=== PATIENT | female | born 1995 | race Caucasian/White ===

== ENCOUNTER 2016-12-30 09:53 | Outpatient (CLI) | payer BC, OTHER | END 2016-12-30 11:29 | disposition home or self-care (01) | LOC: GENOP 09:53 | DX: O42.913 Preterm premature rupture of membranes, unspecified as to length of time between rupture and onset of labor, third trimester (principal); Z3A.35 35 weeks gestation of pregnancy | CPT/HCPCS: 81001; 83518; G0463 ==

== ENCOUNTER 2016-12-31 10:20 | Outpatient (CLI) | payer BC, OTHER | END 2016-12-31 12:07 | disposition home or self-care (01) | LOC: GENOP 10:20 | DX: O46.93 Antepartum hemorrhage, unspecified, third trimester (principal); Z3A.35 35 weeks gestation of pregnancy | CPT/HCPCS: 81001; 87086; G0463 ==

== ENCOUNTER 2017-02-05 16:35 | Inpatient (IN) | payer BC, OTHER ==
[~2017-02-05] VITALS: Ht 160 cm; Wt 102.1 kg
[2017-02-05 17:12] LABS: HEMOGLOBIN 11.7 gm/dl (12.3-15.3); RED BLOOD COUNT 4.43 M/UL (4.00-5.10); WHITE BLOOD COUNT 8.9 K/UL (4.5-11.0)
[2017-02-07 00:45] LABS: RED BLOOD COUNT 3.84 M/UL (4.00-5.10); WHITE BLOOD COUNT 21.4 K/UL (4.5-11.0)
[2017-02-07 03:03] LABS: HEMOGLOBIN 9.6 gm/dl (12.3-15.3)
== END 2017-02-08 16:13 | disposition home or self-care (01) | DRG 775 ==
LOC: GENOP 16:35 → OB 16:41
PROVIDERS: Obstetrics & Gynecology; ADMIT Obstetrics & Gynecology
PROC: 3E0P7GC Introduction of Other Therapeutic Substance into Female Reproductive, Via Natural or Artificial Opening (ICD-10-PCS; principal; 2017-02-06)
PROC: 0U7C7ZZ Dilation of Cervix, Via Natural or Artificial Opening (ICD-10-PCS; principal; 2017-02-06)
PROC: 0KQM0ZZ Repair Perineum Muscle, Open Approach (ICD-10-PCS; 2017-02-06)
PROC: 10907ZC Drainage of Amniotic Fluid, Therapeutic from Products of Conception, Via Natural or Artificial Opening (ICD-10-PCS; 2017-02-06)
PROC: 10E0XZZ Delivery of Products of Conception, External Approach (ICD-10-PCS; 2017-02-06)
PROC: 0UQMXZZ Repair Vulva, External Approach (ICD-10-PCS; 2017-02-06)
DX: O48.0 Post-term pregnancy (principal); Z3A.40 40 weeks gestation of pregnancy; Z37.0 Single live birth; O69.81X0 Labor and delivery complicated by cord around neck, without compression, not applicable or unspecified; O71.82 Other specified trauma to perineum and vulva; O70.1 Second degree perineal laceration during delivery; O99.214 Obesity complicating childbirth; O75.89 Other specified complications of labor and delivery; E28.2 Polycystic ovarian syndrome; B36.0 Pityriasis versicolor; O99.02 Anemia complicating childbirth; D64.9 Anemia, unspecified; O99.52 Diseases of the respiratory system complicating childbirth; J45.909 Unspecified asthma, uncomplicated; G43.909 Migraine, unspecified, not intractable, without status migrainosus; Z87.11 Personal history of peptic ulcer disease; Z83.49 Family history of other endocrine, nutritional and metabolic diseases; Z83.3 Family history of diabetes mellitus; Z82.3 Family history of stroke; Z82.49 Family history of ischemic heart disease and other diseases of the circulatory system
CPT/HCPCS: 36415; 51702; 81001; 82800; 85014; 85018; 85025; 90715; J2405; J2590; J2795; J3010; J7120

== ENCOUNTER → 2020-11-03 | Outpatient (CLI) | payer BC, OTHER ==
[~2020-11-03] MED LIST: PRENATAL VITAM1 EAC5 PO; SINGULAIR10 MG PO
[2020-11-03 10:06] LABS: HEMOGLOBIN 13.7 gm/dl (12.3-15.3); RED BLOOD COUNT 4.94 M/UL (4.00-5.10); WHITE BLOOD COUNT 5.5 K/UL (4.5-11.0)
[2020-11-03 10:22] LABS: BUN/CREATININE RATIO 15 (0-10)
[2020-11-04 08:13] LABS: VITAMIN D, 25-HYDROXY 26.7 ng/mL (30.0-100.0)
[2020-11-06 10:09] LABS: DSDNA CRITHIDIA LUCILIAE IFA Negative (Negative)
== END ==
LOC: LAB 09:17
PROVIDERS: Internal Medicine
DX: D89.89 Other specified disorders involving the immune mechanism, not elsewhere classified (principal); M25.50 Pain in unspecified joint; R76.0 Raised antibody titer; R76.8 Other specified abnormal immunological findings in serum; R53.83 Other fatigue; D64.9 Anemia, unspecified; E55.9 Vitamin D deficiency, unspecified
CPT/HCPCS: 36415; 80053; 82550; 82728; 85025; 86255